=== PATIENT | male | born 1990 | race Two or more races ===

== ENCOUNTER 2019-05-30 21:53 | Emergency (ER) | payer BC ==
[2019-05-30] MEDS: Sodium Chloride 0.9% 1,000 ML IV ONE (22:05)
[2019-05-30] MEDS ORDERED: Sodium Chloride 0.9% 10 ML Syringe FLUSH PRN (22:07)
[2019-05-30] MEDS: fentaNYL 100 MCG/2 ML SDV IVPUSH ONE (22:12)
[2019-05-30] MEDS: Ketorolac 30 MG/ML SDV IVPUSH ONE (22:14)
--- NOTE | 2019-05-30 22:14 | EDM.PDOC ---
ED HPI GENERAL MEDICAL PROBLEM - General Stated Complaint: LOW BACK AREA HURTING Time Seen by Provider: 05/30/19 22:02 Source of Information: Reports: Patient - History of Present Illness INITIAL COMMENTS - FREE TEXT/NARRATIVE: Mejia is a 28 y/o male who presents to the ER with pain in his right flank and groin region that started abruptly 2-3 hours ago. He rates the pain 10/10 at it worst and it has gotten slightly better on arrival to the ER. He cannot void now , but denies any dysuria earlier. Denies he has ever had pain like this before. Right Flank Pain Score (Numeric/FACES): 2 - Related Data Allergies Allergy/AdvReac Type Severity Reaction Status Date / Time No Known Allergies Allergy Verified 05/30/19 22:22 Home Meds: Home Meds Hydrocodone/Acetaminophen [Hydrocodon-Acetaminophen 5-325] 2 each PO Q6HR #12 tablet 05/30/19 [Rx] Ibuprofen 600 mg PO Q6H #120 tablet 05/30/19 [Rx] Ondansetron [Ondansetron ODT] 4 mg PO Q6H PRN #15 tab.rapdis 05/30/19 [Rx] Tamsulosin HCl [Flomax] 0.4 mg PO DAILY #14 cap.er.24h 05/30/19 [Rx] Review of Systems - Review of Systems Review Of Systems: See Below Constitutional: Reports: No Symptoms Eyes: Reports: No Symptoms Ears: Reports: No Symptoms Nose: Reports: No Symptoms Mouth/Throat: Reports: No Symptoms Respiratory: Reports: No Symptoms Cardiovascular: Reports: No Symptoms GI/Abdominal: Reports: Nausea, Vomiting Genitourinary: Reports: No Symptoms Musculoskeletal: Reports: Other (Right Flank Pain) Skin: Reports: No Symptoms Neurological: Reports: No Symptoms Psychiatric: Reports: No Symptoms ED EXAM, GENERAL - Physical Exam Exam: See Below General Appearance: Alert, WD/WN, No Apparent Distress Ears: Hearing Grossly Normal Nose: Normal Inspection Throat/Mouth: Normal Lips, Normal Teeth, Normal Voice, No Airway Compromise Head: Atraumatic, Normocephalic Neck: Supple Respiratory/Chest: No Respiratory Distress, Lungs Clear, Normal Breath Sounds, Chest Non-Tender Cardiovascular: Regular Rate, Rhythm, No Edema GI/Abdominal: Normal Bowel Sounds, Soft, Tender (mild RLQ with palpation, no rebound tenderness) (Male) Exam: Deferred Rectal (Males) Exam: Deferred Back Exam: CVA Tenderness (R) (mild) Extremities: Normal Range of Motion, Non-Tender, Normal Capillary Refill Neurological: Alert, Oriented, CN II-XII Intact, Normal Cognition, No Motor/ Sensory Deficits Psychiatric: Normal Affect, Normal Mood Skin Exam: Warm, Dry, Intact, Normal Color, No Rash Lymphatic: No Adenopathy Course - Vital Signs Text/Narrative:: 2204 The patient was seen by the [facility]. Labs and CT ordered. He was given a liter of NS, Fentanyl 100mcg, Toradol 30mg IVP, and Zofran 4mg IVP. 2300 Rates pain 2/10 now and resting. Awaiting results. 0 CT results reviewed. Labs reviewed. Discussed with patient. Flomax 0.4mg po ordered. Questions answered for patient. Will send home with meds and instructions for straining urine. He was given discharge instructions and sent home in stable condition. Last Recorded V/S: Last Vital Signs Temp 35.5 C 05/30/19 21:55 Pulse 72 05/30/19 21:55 Resp 16 05/30/19 21:55 BP 143/79 H 05/30/19 21:55 Pulse Ox 98 05/30/19 21:55 - Orders/Labs/Meds Orders: Active Orders 24 hr Category Date Time Status Abdomen Pelvis wo Cont [CT] Stat Exams 05/30/19 22:08 Taken Sodium Chloride 0.9% [Saline Flush] Med 05/30/19 22:07 Active 10 ml FLUSH ASDIRECTED PRN Saline Lock Insert [OM.PC] Stat Oth 05/30/19 22:07 Ordered Medication Orders Sodium Chloride (Saline Flush) 10 ml FLUSH ASDIRECTED PRN PRN Reason: Keep Vein Open Labs: Laboratory Tests 05/30/19 05/30/19 05/30/19 Range/Units 22:04 22:04 23:05 WBC 12.1 H (4.0-10.0) x10^3/uL RBC 5.33 (4.5-6.0) x10^6/uL Hgb 15.5 (14.0-18.0) g/dL Hct 45.4 (40.0-52.0) % MCV 85.2 (78.0-93.0) fL MCH 29.1 (26.0-32.0) pg MCHC 34.1 (32.0-36.0) g/dL RDW Coeff of Richelle 12.9 (10.0-15.0) % Plt Count 358 (130-400) x10^3/uL Neut % (Auto) 60.6 (50.0-80.0) % Lymph % (Auto) 28.8 (25.0-50.0) % [place] % (Auto) 9.1 (2.0-11.0) % Eos % (Auto) 1.2 (0.0-4.0) % Baso % (Auto) 0.3 (0.2-1.2) % Sodium 144 (136-145) mmol/L Potassium 3.6 (3.5-5.1) mmol/L Chloride 103 (98-107) mmol/L Carbon Dioxide 28 (21-32) mmol/L Anion Gap 16.6 (10-20) mmol/L BUN 10 (7-18) mg/dL Creatinine 1.1 (0.70-1.30) mg/dL Est Cr Clr Drug Dosing 110.97 mL/min Estimated GFR (MDRD) > 60 Glucose 129 H (74-106) mg/dL Calcium 9.3 (8.5-10.1) mg/dL Corrected Calcium 9.46 (8.5-10.1) mg/dL Total Bilirubin 0.4 (0.2-1.0) mg/dL AST 37 (15-37) U/L ALT 100 H (16-63) U/L Alkaline Phosphatase 104 (46-116) U/L Total Protein 7.7 (6.4-8.2) g/dL Albumin 3.8 (3.4-5.0) g/dL Globulin 3.9 Albumin/Globulin Ratio 0.97 Urine Color Yellow (YELLOW) Urine Appearance Slightly cloudy H (CLEAR) Urine pH 7.0 (5.0-8.0) Ur Specific Garvin 1.020 Urine Protein Negative (NEGATIVE) mg/dL Urine Glucose (UA) Negative (NEGATIVE) mg/dL Urine Ketones Negative (NEGATIVE) mg/dL Urine Occult Blood Moderate H (NEGATIVE) Urine Nitrite Negative (NEGATIVE) Urine Bilirubin Negative (NEGATIVE) Urine Urobilinogen 0.2 (0.2) EU/dL Ur Leukocyte Esterase Negative (NEGATIVE) Urine RBC 10-20 H (NOT SEEN) /HPF Urine WBC 0-5 (NOT SEEN) /HPF Ur Squamous Epith Cells Rare (NEGATIVE) /HPF Urine Bacteria Rare (NEGATIVE) /HPF Urine Mucus Few H (NEGATIVE) /LPF Meds: Medications Generic Name Dose Route Start Last Admin Trade Name Jenn PRN Reason Stop Dose Admin Sodium Chloride 10 ml 05/30/19 22:07 Saline Flush FLUSH ASDIRECTED PRN Keep Vein Open Discontinued Medications Generic Name Dose Route Start Last Admin Trade Name Frecarmelo PRN Reason Stop Dose Admin Fentanyl 100 mcg 05/30/19 22:08 05/30/19 22:12 Sublimaze IVPUSH 05/30/19 22:09 100 mcg ONETIME ONE Administration Sodium Chloride 1,000 mls @ 999 mls/hr 05/30/19 22:07 05/30/19 22:05 Normal Saline IV 05/30/19 23:07 999 mls/hr ONETIME ONE Administration Ketorolac Tromethamine 30 mg 05/30/19 22:07 05/30/19 22:14 Toradol IVPUSH 05/30/19 22:08 30 mg ONETIME ONE Administration Ondansetron HCl 4 mg 05/30/19 22:07 05/30/19 22:16 Zofran IVPUSH 05/30/19 22:08 4 mg ONETIME ONE Administration - Radiology Interpretation Free Text/Narrative:: CT Abd/Pelvis Noncontrast 1)2mm stone distal right ureter, mild right hydronephrosis CT Results Date: 05/30/19 CT Results Time: 22:23 Departure - Departure Time of Disposition: 23:37 Disposition: Home, Self-Care 01 Condition: Good Clinical Impression: Renal calculi - Discharge Information *PRESCRIPTION DRUG MONITORING PROGRAM REVIEWED*: No *COPY OF PRESCRIPTION DRUG MONITORING REPORT IN PATIENT ALFREDO: No Prescriptions: Hydrocodone/Acetaminophen [Hydrocodon-Acetaminophen 5-325] 2 each PO Q6HR #12 tablet Ibuprofen 600 mg PO Q6H #120 tablet Ondansetron [Ondansetron ODT] 4 mg PO Q6H PRN #15 tab.rapdis PRN Reason: Nausea Tamsulosin HCl [Flomax] 0.4 mg PO DAILY #14 cap.er.24h Instructions: Kidney Stones, Dietary Guidelines to Help Prevent Kidney Stones Additional Instructions: -Drink plenty of fluids to help flush stone through kidneys -Use urine strainer to attempt to retrieve stone if able, but is you have complete resolution of pain you have probably passed the stone -Use ibuprofen for pain and inflammation -Use the Ondanestron for nausea -Use the Tamsulosin to help pass the kidney stone -Hydrocodone/APAP 5/325 1-2 tablets every 6 hours as need for severe pain #5(ER ) (Rx) -Return to the the nearest ER if your symptoms or worse or see your PCP when you return home to [place] if you continue to have symptoms Sepsis Event Note - Focused Exam Vital Signs: Vital Signs Temp Pulse Resp BP Pulse Ox 05/30/19 21:55 35.5 C 72 16 143/79 H 98 Date Exam was Performed: 05/30/19 Time Exam was Performed: 23:32 - My Orders Last 24 Hours: My Active Orders 05/30/19 22:07 Sodium Chloride 0.9% [Saline Flush] 10 ml FLUSH ASDIRECTED PRN Saline Lock Insert [OM.PC] Stat 05/30/19 22:08 Abdomen Pelvis wo Cont [CT] Stat - Assessment/Plan Last 24 Hours: My Active Orders 05/30/19 22:07 Sodium Chloride 0.9% [Saline Flush] 10 ml FLUSH ASDIRECTED PRN Saline Lock Insert [OM.PC] Stat 05/30/19 22:08 Abdomen Pelvis wo Cont [CT] Stat
[2019-05-30] MEDS: Ondansetron 4 MG/2 ML SDV IVPUSH ONE (22:16)
[2019-05-30 22:41] LABS: CHLORIDE,CL 103 mmol/L (98-107); SODIUM,NA 144 mmol/L (136-145)
[2019-05-30 22:42] LABS: ANION GAP 16.6 mmol/L (10-20)
[2019-05-30] MEDS: Tamsulosin 0.4 MG Cap.ER PO ONE (23:46)
[2019-05-30] MEDS: Take Home: Acetaminophen/HYDROcodone 325-5 MG, 5 Tab Pack PO ONE (23:49)
[2019-05-30] MEDS: Take Home: Ondansetron 4 MG Tab.DIS, 2 Tab Pack PO ONE (23:49)
--- NOTE | 2019-05-31 07:31 | CT ---
[id number] CT/CT Abdomen Pelvis WO IV EXAM: ABDOMEN AND PELVIS CT WITHOUT CONTRAST INDICATION: R/O RENAL CALCULI; RIGHT FLANK AND RIGHT GROIN PAIN COMPARISON: None. DISCUSSION: A 2 mm calculus at the right ureterovesicular junction results in mild right hydroureteronephrosis. No other renal/ureteral calculus. No left-sided collecting system dilation. Small fat-containing bilateral inguinal hernias. There are few scattered colonic diverticula without evidence of diverticulitis. Mild bilateral gynecomastia. Unenhanced images of the liver, gallbladder, spleen, pancreas, adrenal glands, small bowel and the appendix are unremarkable. The osseous structures are unremarkable. IMPRESSION: 1. A 2 mm right UVJ calculus results in mild right hydroureteronephrosis. Bk Alvarez MD 05/31/19 0730 Thank you for allowing us to participate in the care of your patient.
== END 2019-05-30 23:55 | disposition home or self-care (01) ==
LOC: VM.ED 21:53
DX: N13.2 Hydronephrosis with renal and ureteral calculous obstruction (principal); Z79.899 Other long term (current) drug therapy
CPT/HCPCS: 74176; 80053; 81001; 85025; 96361; 96374; 96375; 99284; A9270; J1885; J2405; J3010; J7030